=== PATIENT | male | born 1980 | race Caucasian/White ===

== ENCOUNTER 2023-11-29 04:29 | Day surgery (SDC) | payer OTHER ==
[2023-11-29] VITALS (210 sets, daily range): BP systolic 97–193; BP diastolic 43–132
[~2023-11-29] VITALS: Ht 188 cm; Wt 87.0 kg
[2023-11-29] MEDS ORDERED: diazePAM 5 MG/TAB PO PRN ×2 (07:30→08:30)
[2023-11-29] MEDS ORDERED: PANTOPRAZOLE SODIUM Sesquihydr 40 MG/TAB PO PRN (07:30)
[2023-11-29] MEDS ORDERED: SCOPOLAMINE 1.5 MG DIS TD PRN (07:30)
[2023-11-29] MEDS ORDERED: FAMOTIDINE 20 MG/TAB PO PRN (07:30)
[2023-11-29] MEDS ORDERED: CYANOCOBALAMIN 500 MCG/TAB ( B12) PO PRN (07:30)
[2023-11-29] MEDS ORDERED: ALBUTEROL SULFATE 2.5 MG VIAL IN PRN (07:30)
[2023-11-29] MEDS ORDERED: cloNIDine HCL 0.1 MG/TAB PO PRN (07:30)
[2023-11-29] MEDS ORDERED: LACTATED RINGER'S 1,000 ML IV PRN ×3 (07:30→19:00)
[2023-11-29] MEDS ORDERED: ASCORBIC ACID 4,000 MG in SODIUM CHLORIDE 0.9% 1,000 ML IV SCH (08:00)
[2023-11-29 08:35] LABS: BASO% 0.6 % (0-3); EOS% 2.8 % (0-8); HEMOGLOBIN 13.8 g/dl (14.0-18.0); IMMATURE GRANULOCYTES 0.3 % (0.0-5.0); LYMPH% 36.2 % (15-41); MEAN CELL VOLUME 91.1 fL CALC (80.0-100.0); MEAN CORPUSCULAR HGB 31.4 pG CALC (26.0-32.0); MEAN CORPUSCULAR HGB CONC 34.5 g/dL CAL (32.0-36.0); MONO% 12.3 % (2-13); NEUT# 5.47 thou/uL (1.82-7.42); NEUT% 47.8 % (42-76); RED BLOOD COUNT 4.39 mill/uL (4.70-6.10); RED CELL DISTRI WIDTH 13.3 % (11.5-15.5)
[2023-11-29 08:54] LABS: ALBUMIN 4.1 g/dL (3.2-5.0); BILIRUBIN, TOTAL 0.4 mg/dL (0.2-1.3); CREATININE 0.8 mg/dL (0.7-1.3); POTASSIUM 3.6 mmol/l (3.5-5.1)
[2023-11-29] MEDS ORDERED: PREDNISONE5 MG PO (09:22)
[2023-11-29] MEDS ORDERED: OMEPRAZOLE DR40 MG (09:22)
[2023-11-29] MEDS ORDERED: SYMBICORT 80-4.5MCG (09:23)
[2023-11-29] MEDS ORDERED: ENBREL25 MG/0.1 (09:24)
[2023-11-29] MEDS ORDERED: diazePAM 5 MG/TAB VT PRN (09:25)
[2023-11-29] MEDS ORDERED: LIDOCAINE HCL 1% (10MG/ML) 100 MG/10 ML MDV VT PRN ×2 (09:25)
[2023-11-29] MEDS ORDERED: PROPOFOL 100 ML IV PRN (09:25)
[2023-11-29] MEDS ORDERED: THIAMINE HCL 100 MG/ML 2ML VIAL IV PRN (09:25)
[2023-11-29] MEDS ORDERED: DEXAMETHASONE SODIUM PHOSPHATE PF 10 MG/ML SDV IV PRN ×2 (09:25→19:00)
[2023-11-29] MEDS ORDERED: OCTREOTIDE ACETATE 100 MCG/VIAL SDV SC PRN (09:25)
[2023-11-29] MEDS ORDERED: DiphenhydrAMINE HCL 50 MG/ML SDV IV PRN (09:25)
[2023-11-29] MEDS ORDERED: cloNIDine HCL 0.1 MG/TAB VT PRN (09:25)
[2023-11-29] MEDS ORDERED: STERILE WATER FOR IRRIGATION 1,000 ML BTL IR PRN (09:25)
[2023-11-29] MEDS ORDERED: POTASSIUM CHLORIDE 10 MEQ/50 ML BAG IV PRN (09:25)
[2023-11-29] MEDS ORDERED: MIDAZOLAM HCL 2 MG/2 ML VIAL IV PRN (09:25)
[2023-11-29] MEDS ORDERED: ROCURONIUM BROMIDE 10 MG/ML 5ML VIAL IV PRN (09:25)
[2023-11-29] MEDS ORDERED: LIDOCAINE HCL 1% (10MG/ML) 100 MG/10 ML MDV IV PRN (09:25)
[2023-11-29] MEDS ORDERED: PROPOFOL 10 MG/ML 100ML VIAL IV PRN (09:25)
[2023-11-29] MEDS ORDERED: NALTREXONE HCL 50 MG/TAB VT PRN (09:25)
[2023-11-29] MEDS ORDERED: ONDANSETRON HCl 4 MG/2 ML SDV IV PRN ×3 (09:25→19:00)
[2023-11-29] MEDS ORDERED: MAGNESIUM SULFATE HEPTAHYDRATE 100 ML IV PRN (09:25)
[2023-11-29] MEDS ORDERED: SUCCINYLCHOLINE CHLORIDE 20 MG/ML 10ML VIAL IV PRN (09:25)
[2023-11-29] MEDS ORDERED: cloNIDine HYDROCHLORIDE 100 MCG/ML 10 ML INJ IV PRN (09:25)
[2023-11-29] MEDS ORDERED: CLONIDINE0.1 MG PO (13:01)
[2023-11-29] MEDS ORDERED: KLONOPIN2 MG PO (13:01)
[2023-11-29] MEDS ORDERED: NALTREXONE50 MG PO (13:01)
[2023-11-29] MEDS ORDERED: ACETAMINOPHEN 1,000 MG/100 ML VIAL IV PRN (19:00)
[2023-11-29] MEDS ORDERED: HALOPERIDOL LACTATE 5 MG/ML SDV IV PRN (19:00)
[2023-11-29] MEDS ORDERED: KETOROLAC TROMETHAMINE 30 MG/ML SDV IV PRN (19:00)
[2023-11-29] MEDS ORDERED: LORazepam 2 MG/ML IV PRN ×2 (19:00)
[2023-11-29] MEDS ORDERED: PROMETHAZINE HCL 12.5 MG in SODIUM CHLORIDE 0.9% 50 ML IV PRN (19:00)
[2023-11-29] MEDS ORDERED: ACETAMINOPHEN 500 MG TAB PO PRN (19:00)
[2023-11-29] MEDS ORDERED: PROMETHAZINE HCL 25 MG in SODIUM CHLORIDE 0.9% 50 ML IV PRN (19:00)
[2023-11-29] MEDS ORDERED: PATIENT' OWN MED CONTROLLED 1 EA DOSE IV PRN (21:00)
[2023-11-29] MEDS ORDERED: cloNIDine HCL 0.1 MG/TAB PO SCH (23:00)
[2023-11-29] MEDS ORDERED: clonazePAM 1 MG/TAB PO PRN (23:00)
[2023-11-30 03:53] VITALS: BP 116/62
[2023-11-30] MEDS ORDERED: cloNIDine HCL 0.1 MG/TAB PO PRN (04:00)
[2023-11-30] MEDS ORDERED: clonazePAM 1 MG/TAB PO PRN ×2 (04:00→08:00)
[2023-11-30 05:06] LABS: BASO% 0.1 % (0-3); HEMATOCRIT 35.8 % (39.0-50.0); HEMOGLOBIN 12.6 g/dl (14.0-18.0); IMMATURE GRANULOCYTES 0.3 % (0.0-5.0); LYMPH% 7.9 % (15-41); MEAN CELL VOLUME 90.9 fL CALC (80.0-100.0); MEAN CORPUSCULAR HGB CONC 35.2 g/dL CAL (32.0-36.0); MONO% 3.4 % (2-13); NEUT# 13.59 thou/uL (1.82-7.42); NEUT% 88.3 % (42-76); RED BLOOD COUNT 3.94 mill/uL (4.70-6.10); RED CELL DISTRI WIDTH 13.2 % (11.5-15.5)
[2023-11-30 05:40] LABS: ALBUMIN 3.8 g/dL (3.2-5.0); CREATININE 0.7 mg/dL (0.7-1.3); MAGNESIUM 1.9 mg/dL (1.6-2.3); POTASSIUM 4.3 mmol/l (3.5-5.1); TOTAL PROTEIN 6.7 g/dL (6.3-8.2)
[2023-11-30] MEDS ORDERED: NALTREXONE HCL 50 MG/TAB PO SCH (08:00)
[2023-11-30] MEDS ORDERED: PANTOPRAZOLE SODIUM Sesquihydr 40 MG/TAB PO SCH (08:00)
[2023-11-30] MEDS ORDERED: ACETAMINOPHEN 325 MG/TAB PO SCH (08:00)
[2023-11-30] MEDS ORDERED: cloNIDine HCL 0.1 MG/TAB PO SCH (08:00)
[2023-11-30 08:19] VITALS: BP 105/56
[2023-11-30] MEDS ORDERED: Cholecalciferol 2,000 UNIT/TAB PO PRN (09:00)
[2023-11-30] MEDS ORDERED: MAGNESIUM SULFATE HEPTAHYDRATE 50 ML IV SCH (09:00)
[2023-11-30] MEDS ORDERED: MAGNESIUM OXIDE 400 MG/TAB PO PRN (09:00)
[2023-11-30] MEDS ORDERED: ACETAMINOPHEN 500 MG TAB PO PRN (09:00)
[2023-11-30] MEDS ORDERED: NALTREXONE HCL 50 MG/TAB PO ONE (11:25)
[2023-12-02] MEDS ORDERED: KETOROLAC TROMETHAMINE 30 MG/ML SDV IV SCH (15:56)
[2023-12-02] MEDS ORDERED: ONDANSETRON HCl 4 MG/2 ML SDV IV PRN (16:00)
[2023-12-02] MEDS ORDERED: LACTATED RINGER'S 1,000 ML IV PRN (16:00)
== END 2023-11-30 16:04 | disposition home or self-care (01) | DRG 897 ==
LOC: ANR 04:29 → MS2 04:29 → EDSEX 07:00 → ANR 07:00 → MS2 19:00 → ANR 11-30 16:04
PROVIDERS: ATTEND Anesthesiology
DX: F11.20 Opioid dependence, uncomplicated (principal)
CPT/HCPCS: J1100; J2060; J2354; J3475